=== PATIENT | female | born 1975 | race Caucasian/White ===

== ENCOUNTER → 2016-11-06 | Outpatient (CLI) | payer BC | END | disposition home or self-care (01) | LOC: C.PAPS 13:58 | PROVIDERS: ATTEND Physician Assistant | DX: Z01.419 Encounter for gynecological examination (general) (routine) without abnormal findings (principal) ==

== ENCOUNTER 2022-08-10 20:05 | Inpatient (IN) ==
[2022-08-10] MEDS ORDERED: CEFEPIME 2,000 MG/20 ML VIAL IV STA (20:13)
[2022-08-10] MEDS ORDERED: SODIUM CHLORIDE 0.9% 1000ML 1,000 ML IV SCH (20:15)
--- NOTE | 2022-08-10 20:28 | Emergency Department Note ---
Impression & Plan Flu-like symptoms, Fever, Leukopenia, Elevated liver enzymes, Acute hyponatremia ED Provider Note NAME: GLENNY ALVAREZ AGE: 47 SEX: F : 1975 ARRIVES VIA: Walk-In INFORMANT: [Patient] ED PROVIDER(S): [Ben Flores MD] CHIEF COMPLAINT: Fever HISTORY OF PRESENT ILLNESS: The patient is a 47-year-old female who has had a week of symptoms. She has had a fever up to as high as 104. She has had body aches. She is quite thirsty. The patient has had a slight cough but nothing too significant. No abdominal pain, no vomiting or diarrhea, no urinary complaints. Patient had laboratory work done 2 days ago and she was told that her white count was low and that her liver enzymes were somewhat elevated. As she has not gotten any better, she presents here for evaluation. No known tick bites. No sick contacts. PMHx/PSHx: See Below SOCIAL HISTORY: See Below. PHYSICAL EXAM: GENERAL: Patient is in no acute distress. HEENT: No acute trauma, normocephalic atraumatic, mucous membranes moist, no nasal congestion. NECK: No stridor, no adenopathy, no meningismus, trachea is midline. LUNGS: Clear to auscultation bilaterally, no wheeze, no rhonchi, breath sounds equal. HEART: Mildly tachycardic, regular rhythm, no murmurs. ABDOMEN: Soft, nontender, bowel sounds positive, no peritonitis. EXTREMITIES: No cyanosis or edema, full range of motion of all the joints without pain or difficulty, no signs for acute trauma. NEUROLOGIC: Oriented x 3, no acute motor or sensory deficits, no focal weakness. SKIN: No rash, no jaundice, no diaphoresis. DIFFERENTIAL DIAGNOSIS: Sepsis or bacteremia, Lyme disease, viral illness, pneumonia, bronchitis, dehydration, electrolyte imbalance, UTI, among others. EMERGENCY DEPARTMENT COURSE/PROCEDURES: Prior/Outside records reviewed: None. ECG per my review: Indication was potential sepsis. The ECG shows a normal sinus rhythm with a rate of 97. There is a potential old inferior infarct. T waves are slightly peaked. No concerning ST elevation. No PVCs. The QTc is 439. Continuous Cardiac Monitoring: An order was placed for continuous cardiac monitoring. The monitor shows a rate of 103 with sinus tachycardia. Critical Care Note: I have personally spent 41 minutes of critical care time in the direct management of this patient. This includes bedside care, interpretation of diagnostic studies, and testing, discussion with consultants, patient, and family members, and other required patient management activities. This 41 minutes is in excess of all separately billable procedures. MEDICAL DECISION MAKING: There is no leukocytosis, in fact, the white count is quite low at 2.4. There was a normal hemoglobin. Platelet count was normal at 162. Renal panel testing showed a lower potassium at 3.4. Sodium was quite low at 127. No renal failure. Lactic acid level was not elevated making severe sepsis less likely. Magnesium is low at 1.5. There were diffuse liver enzyme elevations. Procalcitonin level was slightly elevated consistent with potential bacterial infection. ECG showed showed a normal sinus rhythm, no obvious ischemia. Cardiac enzyme testing was slightly elevated. This elevation could be secondary to mismatch or potentially cardiac injury. Urinalysis did not show infection. Respiratory bio fire was completely negative. Lyme disease testing was negative. Anaplasmosis testing is pending, Babesia testing is pending. Tick smear is pending. Chest film per my review did not show mediastinal widening or pneumonia. Patient received IV saline, 2 L in total. She received IV cefepime as empiric antibiotic coverage. She was given oral doxycycline for the potential of a tickborne disease. She was given IV magnesium. Given the persistent fever, given the laboratory abnormalities, I do think a hospital stay is warranted. I spoke with the patient and case management, the on-call hospitalist was consulted. At this point, the cause for her illness is not completely clear, tickborne disease is certainly a strong consideration. DISPOSITION: The patient's presentation and findings warrant a hospital stay. Past Med/Surg History Medical History Hypertension Social History Smoking Status: Former smoker Preferred Language: Czech Feels Safe at Home: Yes Allergies Allergies Allergy/AdvReac Type Severity Reaction Status Date / Time codeine AdvReac Unknown GI UPSET Verified 11/03/15 15:31 [id number] Allergy Unknown Uncoded 06/16/02 17:59 N Allergy Unknown Uncoded 06/16/02 17:59 NO Allergy Unknown Uncoded 06/16/02 17:59 Results & Data (ED) Vital Signs Vital Signs - 24 hr 08/10/22 20:06 08/10/22 20:43 08/10/22 20:43 Temperature 37 C Temperature Source Oral Pulse Rate 116 H 104 H 104 H Pulse Rate from SpO2 Sensor 104 H Pulse Rhythm Regular Pulse Strength Normal Respiratory Rate 18 20 Respiratory Effort / Characteristics Non-Labored Spontaneous Respiratory Depth Normal Respiratory Pattern Regular Blood Pressure 141/93 H Blood Pressure Mean 109 Blood Pressure Position Sitting Pulse Oximetry 98 100 Oxygen Delivery Method Room Air Sepsis Recent Fever Within 48 Hours Yes Sepsis New/Unexplained Change in Mental Status N/A Sepsis Action Taken by Nursing No Action Required 08/10/22 20:50 08/10/22 21:00 08/10/22 21:00 Temperature Temperature Source Pulse Rate 95 H 100 H Pulse Rate from SpO2 Sensor 96 H 97 H Pulse Rhythm Pulse Strength Respiratory Rate 22 19 Respiratory Effort / Characteristics Respiratory Depth Respiratory Pattern Blood Pressure 129/90 Blood Pressure Mean 103 Blood Pressure Position Pulse Oximetry 99 91 Oxygen Delivery Method Sepsis Recent Fever Within 48 Hours Sepsis New/Unexplained Change in Mental Status Sepsis Action Taken by Nursing 08/10/22 21:10 08/10/22 21:20 08/10/22 21:30 Temperature Temperature Source Pulse Rate 95 H 93 H 98 H Pulse Rate from SpO2 Sensor 96 H 94 H Pulse Rhythm Pulse Strength Respiratory Rate 20 22 21 Respiratory Effort / Characteristics Respiratory Depth Respiratory Pattern Blood Pressure Blood Pressure Mean Blood Pressure Position Pulse Oximetry 100 100 Oxygen Delivery Method Sepsis Recent Fever Within 48 Hours Sepsis New/Unexplained Change in Mental Status Sepsis Action Taken by Nursing 08/10/22 21:31 08/10/22 21:31 08/10/22 21:40 Temperature Temperature Source Pulse Rate 101 H 94 H Pulse Rate from SpO2 Sensor Pulse Rhythm Pulse Strength Respiratory Rate 18 16 Respiratory Effort / Characteristics Respiratory Depth Respiratory Pattern Blood Pressure Blood Pressure Mean 111 Blood Pressure Position Pulse Oximetry 99 Oxygen Delivery Method Sepsis Recent Fever Within 48 Hours Sepsis New/Unexplained Change in Mental Status Sepsis Action Taken by Nursing 08/10/22 21:50 08/10/22 22:00 08/10/22 22:00 Temperature Temperature Source Pulse Rate 105 H 95 H Pulse Rate from SpO2 Sensor Pulse Rhythm Pulse Strength Respiratory Rate 21 18 Respiratory Effort / Characteristics Respiratory Depth Respiratory Pattern Blood Pressure 134/88 Blood Pressure Mean 103 Blood Pressure Position Pulse Oximetry 99 98 Oxygen Delivery Method Sepsis Recent Fever Within 48 Hours Sepsis New/Unexplained Change in Mental Status Sepsis Action Taken by Nursing 08/10/22 22:10 08/10/22 22:20 08/10/22 22:30 Temperature Temperature Source Pulse Rate 100 H 99 H 92 H Pulse Rate from SpO2 Sensor Pulse Rhythm Pulse Strength Respiratory Rate 20 22 19 Respiratory Effort / Characteristics Respiratory Depth Respiratory Pattern Blood Pressure Blood Pressure Mean Blood Pressure Position Pulse Oximetry 98 97 99 Oxygen Delivery Method Sepsis Recent Fever Within 48 Hours Sepsis New/Unexplained Change in Mental Status Sepsis Action Taken by Nursing 08/10/22 22:40 08/10/22 22:52 08/10/22 22:59 Temperature Temperature Source Pulse Rate 96 H 114 H 95 H Pulse Rate from SpO2 Sensor Pulse Rhythm Pulse Strength Respiratory Rate 18 20 Respiratory Effort / Characteristics Respiratory Depth Respiratory Pattern Blood Pressure Blood Pressure Mean Blood Pressure Position Pulse Oximetry 96 97 Oxygen Delivery Method Sepsis Recent Fever Within 48 Hours Sepsis New/Unexplained Change in Mental Status Sepsis Action Taken by Nursing 08/10/22 23:00 Temperature Temperature Source Pulse Rate Pulse Rate from SpO2 Sensor Pulse Rhythm Pulse Strength Respiratory Rate Respiratory Effort / Characteristics Respiratory Depth Respiratory Pattern Blood Pressure 129/92 Blood Pressure Mean 104 Blood Pressure Position Pulse Oximetry Oxygen Delivery Method Sepsis Recent Fever Within 48 Hours Sepsis New/Unexplained Change in Mental Status Sepsis Action Taken by Alf Medications Current Medication List: was personally reviewed by me Laboratory Data Attestation: I reviewed the patient's lab results. 08/10/22 20:31 08/10/22 05:03 Lab Results 08/10/22 08/10/22 08/10/22 Range/Units 05:03 20:31 20:31 WBC 2.42 L (4.8-10.8) K/ul RBC 4.36 (4.20-5.40) M/uL Hgb 14.3 (12.0-16.0) g/dl Hct 39.0 (37.0-47.0) % MCV 89.4 (80.0-100.0) fL MCH 32.8 (25.0-34.0) pg MCHC 36.7 H (32.0-36.0) g/dL RDW Std Deviation 39.7 (36.4-46.3) fL RDW Coeff of Lenore 12.1 (11.5-14.5) % Plt Count 162 (130-400) K/uL MPV 11.3 (9.4-12.4) fL Sodium 127 L (136-145) mmol/L Potassium 3.4 L (3.5-5.1) mmol/L Chloride 93 L (98-107) mmol/L Carbon Dioxide 27 (21-32) mmol/L Anion Gap 7 (3-11) BUN 7 (6-23) mg/dl Creatinine 0.51 L (0.6-1.2) mg/dl Est Cr Clr Drug Dosing 140.5 ml/min Est GFR ( Amer) 134.6 ml/min Est GFR (Non-Af Amer) 116.1 ml/min BUN/Creatinine Ratio 13.7 (10-20) Glucose 102 H (70-99(Fasting)) mg/dl Lactate 1.1 (0.4-2.0) mmol/L Calcium 8.6 (8.6-10.3) mg/dl Magnesium 1.5 L (1.7-2.4) mg/dl Total Bilirubin 1.3 H (0.2-1.0) mg/dl Direct Bilirubin 0.5 H (0-0.2) mg/dl AST 260 H (13-39) U/L ALT 161 H (7-52) U/L Alkaline Phosphatase 283 H (34-104) U/L Troponin I High Sens 14.5 H (0-14) pg/ml Total Protein 6.5 (6.0-8.3) gm/dl Albumin 3.6 (3.4-5.0) gm/dl Procalcitonin (0-0.5) ng/ml Urine Color Urine Appearance (Clear) Urine pH (4.5-7.5) Ur Specific Salters (1.000-1.030) Urine Protein (Negative) Urine Glucose (UA) (Negative) Urine Ketones (Negative) Urine Blood (Negative) Urine Nitrite (Negative) Urine Bilirubin (Negative) Urine Urobilinogen (Negative) Ur Leukocyte Esterase (Negative) Adenovirus (PCR) (NotDetected) B. pertussis DNA (PCR) (NotDetected) B.parapertussis DNA PCR (NotDetected) Lyme Disease IgG Ab (Negative) Lyme Disease IgM Ab (Negative) C. pneumoniae DNA (PCR) (NotDetected) Coronavirus OC43 (PCR) (NotDetected) Coronavirus HKU1 (PCR) (NotDetected) Coronavirus 229E (PCR) (NotDetected) SARS-CoV-2 (PCR) (NotDetected) Coronavirus NL63 (PCR) (NotDetected) Human Metapneumovir PCR (NotDetected) Influenza Type A (PCR) (NotDetected) Influenza Type B (PCR) (NotDetected) M. pneumoniae (PCR) (NotDetected) Parainfluenza 1 (PCR) (NotDetected) Parainfluenza 2 (PCR) (NotDetected) Parainfluenza 3 (PCR) (NotDetected) Parainfluenza 4 (PCR) (NotDetected) RSV (PCR) (NotDetected) Entero/Rhino (PCR) (NotDetected) 08/10/22 08/10/22 08/10/22 Range/Units 20:31 20:31 20:34 WBC (4.8-10.8) K/ul RBC (4.20-5.40) M/uL Hgb (12.0-16.0) g/dl Hct (37.0-47.0) % MCV (80.0-100.0) fL MCH (25.0-34.0) pg MCHC (32.0-36.0) g/dL RDW Std Deviation (36.4-46.3) fL RDW Coeff of Lenore (11.5-14.5) % Plt Count (130-400) K/uL MPV (9.4-12.4) fL Sodium (136-145) mmol/L Potassium (3.5-5.1) mmol/L Chloride (98-107) mmol/L Carbon Dioxide (21-32) mmol/L Anion Gap (3-11) BUN (6-23) mg/dl Creatinine (0.6-1.2) mg/dl Est Cr Clr Drug Dosing ml/min Est GFR ( Amer) ml/min Est GFR (Non-Af Amer) ml/min BUN/Creatinine Ratio (10-20) Glucose (70-99(Fasting)) mg/dl Lactate (0.4-2.0) mmol/L Calcium (8.6-10.3) mg/dl Magnesium (1.7-2.4) mg/dl Total Bilirubin (0.2-1.0) mg/dl Direct Bilirubin (0-0.2) mg/dl AST (13-39) U/L ALT (7-52) U/L Alkaline Phosphatase (34-104) U/L Troponin I High Sens (0-14) pg/ml Total Protein (6.0-8.3) gm/dl Albumin (3.4-5.0) gm/dl Procalcitonin (0-0.5) ng/ml Urine Color Dior Urine Appearance Clear (Clear) Urine pH 6.0 (4.5-7.5) Ur Specific Salters <= 1.005 (1.000-1.030) Urine Protein Negative (Negative) Urine Glucose (UA) Negative (Negative) Urine Ketones Negative (Negative) Urine Blood Negative (Negative) Urine Nitrite Negative (Negative) Urine Bilirubin Negative (Negative) Urine Urobilinogen Negative (Negative) Ur Leukocyte Esterase Negative (Negative) Adenovirus (PCR) Not Detected (NotDetected) B. pertussis DNA (PCR) Not Detected (NotDetected) B.parapertussis DNA PCR Not Detected (NotDetected) Lyme Disease IgG Ab Negative (Negative) Lyme Disease IgM Ab Negative (Negative) C. pneumoniae DNA (PCR) Not Detected (NotDetected) Coronavirus OC43 (PCR) Not Detected (NotDetected) Coronavirus HKU1 (PCR) Not Detected (NotDetected) Coronavirus 229E (PCR) Not Detected (NotDetected) SARS-CoV-2 (PCR) Not Detected (NotDetected) Coronavirus NL63 (PCR) Not Detected (NotDetected) Human Metapneumovir PCR Not Detected (NotDetected) Influenza Type A (PCR) Not Detected (NotDetected) Influenza Type B (PCR) Not Detected (NotDetected) M. pneumoniae (PCR) Not Detected (NotDetected) Parainfluenza 1 (PCR) Not Detected (NotDetected) Parainfluenza 2 (PCR) Not Detected (NotDetected) Parainfluenza 3 (PCR) Not Detected (NotDetected) Parainfluenza 4 (PCR) Not Detected (NotDetected) RSV (PCR) Not Detected (NotDetected) Entero/Rhino (PCR) Not Detected (NotDetected) 08/10/22 Range/Units 21:37 WBC (4.8-10.8) K/ul RBC (4.20-5.40) M/uL Hgb (12.0-16.0) g/dl Hct (37.0-47.0) % MCV (80.0-100.0) fL MCH (25.0-34.0) pg MCHC (32.0-36.0) g/dL RDW Std Deviation (36.4-46.3) fL RDW Coeff of Lenore (11.5-14.5) % Plt Count (130-400) K/uL MPV (9.4-12.4) fL Sodium (136-145) mmol/L Potassium (3.5-5.1) mmol/L Chloride (98-107) mmol/L Carbon Dioxide (21-32) mmol/L Anion Gap (3-11) BUN (6-23) mg/dl Creatinine (0.6-1.2) mg/dl Est Cr Clr Drug Dosing ml/min Est GFR ( Amer) ml/min Est GFR (Non-Af Amer) ml/min BUN/Creatinine Ratio (10-20) Glucose (70-99(Fasting)) mg/dl Lactate (0.4-2.0) mmol/L Calcium (8.6-10.3) mg/dl Magnesium (1.7-2.4) mg/dl Total Bilirubin (0.2-1.0) mg/dl Direct Bilirubin (0-0.2) mg/dl AST (13-39) U/L ALT (7-52) U/L Alkaline Phosphatase (34-104) U/L Troponin I High Sens (0-14) pg/ml Total Protein (6.0-8.3) gm/dl Albumin (3.4-5.0) gm/dl Procalcitonin 0.54 H (0-0.5) ng/ml Urine Color Urine Appearance (Clear) Urine pH (4.5-7.5) Ur Specific Salters (1.000-1.030) Urine Protein (Negative) Urine Glucose (UA) (Negative) Urine Ketones (Negative) Urine Blood (Negative) Urine Nitrite (Negative) Urine Bilirubin (Negative) Urine Urobilinogen (Negative) Ur Leukocyte Esterase (Negative) Adenovirus (PCR) (NotDetected) B. pertussis DNA (PCR) (NotDetected) B.parapertussis DNA PCR (NotDetected) Lyme Disease IgG Ab (Negative) Lyme Disease IgM Ab (Negative) C. pneumoniae DNA (PCR) (NotDetected) Coronavirus OC43 (PCR) (NotDetected) Coronavirus HKU1 (PCR) (NotDetected) Coronavirus 229E (PCR) (NotDetected) SARS-CoV-2 (PCR) (NotDetected) Coronavirus NL63 (PCR) (NotDetected) Human Metapneumovir PCR (NotDetected) Influenza Type A (PCR) (NotDetected) Influenza Type B (PCR) (NotDetected) M. pneumoniae (PCR) (NotDetected) Parainfluenza 1 (PCR) (NotDetected) Parainfluenza 2 (PCR) (NotDetected) Parainfluenza 3 (PCR) (NotDetected) Parainfluenza 4 (PCR) (NotDetected) RSV (PCR) (NotDetected) Entero/Rhino (PCR) (NotDetected) Administered Medications Sodium Chloride (Nss 1000ml) 1,000 mls @ 999 mls/hr IV .Q1H1M ONE Stop: 08/10/22 23:56 Last Admin: 08/10/22 23:19 Dose: 999 mls/hr Documented By: BRIELLE Magnesium Sulfate/Dextrose (Magnesium Sulfate / D5w) 1 gm in 100 mls @ 100 mls/hr IV NOW STA Stop: 08/11/22 00:10 Last Admin: 08/10/22 23:19 Dose: 100 mls/hr Documented By: BRIELLE Discontinued Medications Doxycycline Hyclate (Doxycycline Hyclate 100 Mg Cap) 100 mg PO NOW STA Stop: 08/10/22 22:57 Last Admin: 08/10/22 23:19 Dose: 100 mg Documented By: BRIELLE Cefepime HCl (Maxipime) 2,000 mg in 20 mls @ 5 mls/min IV NOW STA; Protocol Stop: 08/10/22 20:16 Last Admin: 08/10/22 20:52 Dose: 5 mls/min Documented By: JAIDEN Sodium Chloride (Nss 1000ml) 1,000 mls @ 999 mls/hr IV .Q1H1M YOLI Stop: 08/10/22 21:15 Last Infusion: 08/10/22 23:00 Dose: 0 mls/hr Documented By: Admin: 08/10/22 20:37 Dose: 999 mls/hr Documented By: EMB Imaging Data Attestation: I personally reviewed and interpreted this imaging study as follows: My Impression: Chest x-ray: Per my review there is no mediastinal widening, pneumonia or pneumothorax. Discharge Plan Visit Data Chief Complaint: Fever Stated Complaint: FEVER, FOR 7 DAYS ED Provider: Ben Flores Discharge Problem: Flu-like symptoms, Fever, Leukopenia, Elevated liver enzymes, Acute hyponatremia Patient Disposition: Admitted As Inpatient Condition: Fair Forms Stand Alone Forms: My [facility] Referrals Referrals: Marcelino Luevano DO [Physician] -
[2022-08-10 20:59] LABS: Appearance Urine Clear (Clear); Bilirubin Urine Negative (Negative); Blood Urine Negative (Negative); Color Urine Amber; Glucose Urine UA Negative (Negative); Ketones Urine Negative (Negative); Leukocyte Esterase Urine Negative (Negative); Nitrite Urine Negative (Negative); Protein Urine Negative (Negative); Specific Gravity Urine <= 1.005 (1.000-1.030); Urobilinogen Urine Negative (Negative)
[2022-08-10 21:09] LABS: Hemoglobin 14.3 g/dl (12.0-16.0); Mean Corpuscular Hemoglobin 32.8 pg (25.0-34.0); Mean Corpuscular Hgb Conc 36.7 g/dL (32.0-36.0); Mean Corpuscular Volume 89.4 fL (80.0-100.0); Mean Platelet Volume 11.3 fL (9.4-12.4); Platelet Count 162 K/uL (130-400); RDW Coefficient of Variation 12.1 % (11.5-14.5); RDW Standard Deviation 39.7 fL (36.4-46.3); Red Blood Count 4.36 M/uL (4.20-5.40); White Blood Count 2.42 K/ul (4.8-10.8)
[2022-08-10 21:27] LABS: Albumin Level 3.6 gm/dl (3.4-5.0); BUN Creatinine Ratio 13.7 (10-20); Bilirubin Direct 0.5 mg/dl (0-0.2); Bilirubin,Total 1.3 mg/dl (0.2-1.0); Calcium 8.6 mg/dl (8.6-10.3); Creatinine Clr Calc Pharmacy 140.5 ml/min; Est GFR (African American) 134.6 ml/min; Est GFR (Non-African American) 116.1 ml/min; Magnesium 1.5 mg/dl (1.7-2.4); Potassium 3.4 mmol/L (3.5-5.1); Total Protein 6.5 gm/dl (6.0-8.3)
[2022-08-10 21:30] LABS: Adenovirus PCR Not Detected (NotDetected); Bordetella parapertussis PCR Not Detected (NotDetected); Bordetella pertussis PCR Not Detected (NotDetected); Chlamydia pneumoniae PCR Not Detected (NotDetected); Coronavirus 229E PCR Not Detected (NotDetected); Coronavirus CoV-2 (COVID19)PCR Not Detected (NotDetected); Coronavirus HKU1 PCR Not Detected (NotDetected); Coronavirus NL63 PCR Not Detected (NotDetected); Coronavirus OC43PCR Not Detected (NotDetected); Human Metapneumovirus PCR Not Detected (NotDetected); Influenza A PCR Not Detected (NotDetected); Influenza B PCR Not Detected (NotDetected); Mycoplasma pneumoniae PCR Not Detected (NotDetected); Parainfluenza Virus 1 PCR Not Detected (NotDetected); Parainfluenza Virus 2 PCR Not Detected (NotDetected); Parainfluenza Virus 3 PCR Not Detected (NotDetected); Parainfluenza Virus 4 PCR Not Detected (NotDetected); Respiratory Syncytial VirusPCR Not Detected (NotDetected); Rhinovirus/Enterovirus PCR Not Detected (NotDetected)
[2022-08-10 21:34] LABS: Troponin I High Sensitivity 14.5 pg/ml (0-14)
[2022-08-10 21:59] LABS: Lyme Ab IgG w/WB Rflx Negative (Negative); Lyme Ab IgM w/WB Rflx Negative (Negative)
[2022-08-10] MEDS ORDERED: DOXYCYCLINE HYCLATE 100 MG CAP PO STA (22:56)
[2022-08-10] MEDS ORDERED: SODIUM CHLORIDE 0.9% 1000ML 1,000 ML IV ONE (22:56)
[2022-08-10] MEDS ORDERED: MAGNESIUM SULFATE / D5W 1 GM/100 ML BAG IV STA (23:11)
[2022-08-11] MEDS ORDERED: POTASSIUM CHLORIDE PWD 20 MEQ PACK PO STA (00:03)
[2022-08-11 00:05] LABS: Basophils # (auto) 0.02 K/uL (0-0.2); Basophils % (auto) 0.8 %; Echinocytes 3+; Eosinophils # (auto) 0.02 K/uL (0-0.50); Eosinophils % (auto) 0.8 %; Giant Platelets 1+; Immature Granulocytes # (auto) 0.01 K/uL (0.01-0.20); Immature Granulocytes % (auto) 0.4 %; Lymphocytes # (auto) 0.48 K/uL (1.2-3.4); Lymphocytes % (auto) 19.8 %; Monocytes # (auto) 0.16 K/uL (0.11-0.59); Monocytes % (auto) 6.6 %; Neutrophils # (auto) 1.73 K/uL (1.40-6.50); Neutrophils % (auto) 71.6 %
[2022-08-11] MEDS ORDERED: MAGNESIUM SULFATE / D5W 1 GM/100 ML BAG IV STA (00:16)
[2022-08-11] MEDS ORDERED: ACETAMINOPHEN 325 MG TAB PO STA (01:06)
[2022-08-11 01:09] LABS: Troponin I High Sensitivity 11.5 pg/ml (0-14)
[2022-08-11] MEDS ORDERED: lisinopril 5 MG TAB PO STA (01:12)
[2022-08-11 01:19] LABS: INR 1.1 (0.9-1.1); Partial Thromboplastin Ratio 1.3; Partial Thromboplastin Time 35.5 Seconds (21.0-31.0); Prothrombin Time 11.4 Seconds (9.0-12.0)
--- NOTE | 2022-08-11 02:02 | History & Physical Report ---
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 Lovenox subcu Full code Text document was generated using [employer] voice recognition software. It may contain grammatical or spelling errors. Kindly contact undersigned for clarification of any documentation item in question. History of Present Illness Chief Complaint: Fever Primary Care Provider: Wojciech Brooke MD History obtained from patient and records. 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 Patient has not felt well for about 2 weeks. Postnasal drip with dry cough symptoms. Fever chills. Headache with myalgias. No neck pain. Patient denies chest pain, SOB, abdominal pain, diarrhea, dysuria symptoms. Patient received COVID-19 vaccination. Outpatient COVID-19 test was negative. No recollection of recent tick bite although there are a lot of ticks where she resides. Patient alternating NSAID with Tylenol (3 g daily since last week) at home . Patient seen at PCPs office 3 days ago. Symptoms attributed to viral URI/flu as per patient. Outpatient Lyme screen was negative. Abnormal labs noted outpatient. WBC 2.08 with abnormal differential count. Sodium 124, AST 240, ALT 147 Worsening symptoms at home. Patient may have missed home medications because she had not been feeling well. Patient consulted ER for evaluation. IV ceftriaxone and doxycycline administered at the ER. 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, nursing background Allergies Allergy/AdvReac Type Severity Reaction Status Date / Time codeine AdvReac Unknown GI UPSET Verified 08/10/22 23:47 Home Medications Medication Instructions Recorded Confirmed Type aspirin 81 mg tablet,delayed 81 mg PO DAILY 08/10/22 08/10/22 History release doxycycline monohydrate 50 mg 50 mg PO DAILY 08/10/22 08/10/22 History capsule ibuprofen 200 mg tablet (Advil) 600 mg PO Q6H PRN Fever 08/10/22 08/10/22 History lisinopril 10 mg tablet 10 mg PO DAILY 08/10/22 08/10/22 History metoprolol succinate 50 mg 50 mg PO DAILY 08/10/22 08/10/22 History tablet,extended release 24 hr Past Med/Surg History Medical History Hypertension Social History Smoking Status: Former smoker Cigarettes Per Day: 1 PPD; Smoking End Date: 3 years ago; Hx Alcohol Use: Yes Hx Substance Use: No Preferred Language: Syriac Communication Ability: Effective Outside Installation Machinist Required: No Current Living Situation: Family Current Living Situation Comment: Lives w/ and three children Other Information That Helps Us Care for You: No Feels Safe at Home: Yes Safety Concerns: Feels Safe At This Time Assistive Devices: None Review of Systems Review of Systems: As per HPI, all other systems reviewed and negative Physical Exam Physical Exam: GENERAL: Comfortable, pleasant, no respiratory distress SKIN: Flushed skin , warm HEENT: [place] palpebral conjunctivae, no ptosis, dry buccal mucosa NECK : Supple, no tenderness CHEST : CTA, no tenderness HEART : Tachycardic, no obvious murmurs ABDOMEN: Some distention, nontender EXTREMITIES : No LE swelling/tenderness, no other conspicuous deformities noted NEUROLOGIC : Coherent, no facial asymmetry, no other gross focality Results & Data Results & Data Vital Signs (Past 12 Hours) Vital Signs Temp Pulse Resp BP Pulse Ox O2 Del Method 08/11/22 01:13 103 H 08/11/22 00:55 37.8 C H 08/11/22 00:00 97 H 21 99 08/11/22 00:00 151/97 H 08/10/22 23:50 102 H 13 98 08/10/22 23:40 102 H 21 95 08/10/22 23:30 94 H 18 99 08/10/22 23:30 128/94 08/10/22 23:20 108 H 21 08/10/22 23:10 102 H 22 97 08/10/22 23:00 94 H 23 97 08/11/22 00:00 98 Room Air 08/10/22 23:00 129/92 08/10/22 22:59 95 H 20 97 08/10/22 22:52 114 H 08/10/22 22:40 96 H 18 96 08/10/22 22:30 92 H 19 99 08/10/22 22:20 99 H 22 97 08/10/22 22:10 100 H 20 98 08/10/22 22:00 95 H 18 98 08/10/22 22:00 134/88 08/10/22 21:50 105 H 21 99 08/10/22 21:40 94 H 16 99 08/10/22 21:31 101 H 18 08/10/22 21:30 98 H 21 08/10/22 21:20 93 H 22 100 08/10/22 21:10 95 H 20 100 08/10/22 21:00 100 H 19 91 08/10/22 21:00 129/90 08/10/22 20:50 95 H 22 99 08/10/22 20:43 104 H 20 100 08/10/22 20:43 104 H 08/10/22 20:06 37 C 116 H 18 141/93 H 98 Room Air Laboratory Results Laboratory Results WBC 2.42 K/ul (4.8-10.8) L 08/10/22 20:31 RBC 4.36 M/uL (4.20-5.40) 08/10/22 20:31 Hgb 14.3 g/dl (12.0-16.0) 08/10/22 20:31 Hct 39.0 % (37.0-47.0) 08/10/22 20:31 MCV 89.4 fL (80.0-100.0) 08/10/22 20:31 MCH 32.8 pg (25.0-34.0) 08/10/22 20:31 MCHC 36.7 g/dL (32.0-36.0) H 08/10/22 20:31 RDW Std Deviation 39.7 fL (36.4-46.3) 08/10/22 20:31 RDW Coeff of Lenore 12.1 % (11.5-14.5) 08/10/22: Plt Count 162 K/uL (130-400) 08/10/22: MPV 11.3 fL (9.4-12.4) 08/10/22 20: Immature Gran % (Auto) 0.4 % 08/10/22: Neut % (Auto) 71.6 % 08/10/22: Lymph % (Auto) 19.8 % 08/10/22 20: Tyler % (Auto) 6.6 % 08/10/22: Eos % (Auto) 0.8 % 08/10/22: Baso % (Auto) 0.8 % 08/10/22: Neut # (Auto) 1.73 K/uL (1.40-6.50) 08/10/22: Lymph # (Auto) 0.48 K/uL (1.2-3.4) L 08/10/22: Tyler # (Auto) 0.16 K/uL (0.11-0.59) 08/10/22 20: Eos # (Auto) 0.02 K/uL (0-0.50) 08/10/22: Baso # (Auto) 0.02 K/uL (0-0.2) 08/10/22: Immature Gran # (Auto) 0.01 K/uL (0.01-0.20) 08/10/22: Giant Platelets 1+ 08/10/22: Echinocytes 3+ 08/10/22: PT 11.4 Seconds (9.0-12.0) 08/11/22 00:22 INR 1.1 (0.9-1.1) 08/11/22 00: APTT 35.5 Seconds (21.0-31.0) H 08/11/22 00:22 PTT Ratio 1.3 08/11/22 00:22 Sodium 127 mmol/L (136-145) L 08/10/22 Unknown Potassium 3.4 mmol/L (3.5-5.1) L 08/10/22 Unknown Chloride 93 mmol/L (98-107) L 08/10/22 Unknown Carbon Dioxide 27 mmol/L (21-32) 08/10/22 Unknown Anion Gap 7 (3-11) 08/10/22 Unknown BUN 7 mg/dl (6-23) 08/10/22 Unknown Creatinine 0.51 mg/dl (0.6-1.2) L 08/10/22 Unknown Est Cr Clr Drug Dosing 140.5 ml/min 08/10/22 Unknown Est GFR ( Amer) 134.6 ml/min 08/10/22 Unknown Est GFR (Non-Af Amer) 116.1 ml/min 08/10/22 Unknown BUN/Creatinine Ratio 13.7 (10-20) 08/10/22 Unknown Glucose 102 mg/dl (70-99(Fasting)) H 08/10/22 Unknown Osmolality 265 mOsm/kg (280-300) L 08/10/22 20:31 Lactate 1.1 mmol/L (0.4-2.0) 08/10/22 20:31 Calcium 8.6 mg/dl (8.6-10.3) 08/10/22 Unknown Magnesium 1.5 mg/dl (1.7-2.4) L 08/10/22 Unknown Total Bilirubin 1.3 mg/dl (0.2-1.0) H 08/10/22 Unknown Direct Bilirubin 0.5 mg/dl (0-0.2) H 08/10/22 Unknown AST 260 U/L (13-39) H 08/10/22 Unknown ALT 161 U/L (7-52) H 08/10/22 Unknown Alkaline Phosphatase 283 U/L (34-104) H 08/10/22 Unknown Troponin I High Sens 11.5 pg/ml (0-14) 08/11/22 00:22 Total Protein 6.5 gm/dl (6.0-8.3) 08/10/22 Unknown Albumin 3.6 gm/dl (3.4-5.0) 08/10/22 Unknown Lipase 20 U/L (11-82) 08/11/22 00:22 Procalcitonin 0.54 ng/ml (0-0.5) H 08/10/22 21:37 TSH 0.408 uIu/ml (0.300-4.500) 08/10/22 20:31 Urine Color Dior 08/10/22 20:31 Urine Appearance Clear (Clear) 08/10/22 20:31 Urine pH 6.0 (4.5-7.5) 08/10/22 20:31 Ur Specific [place] <= 1.005 (1.000-1.030) 08/10/22 20:31 Urine Protein Negative (Negative) 08/10/22 20:31 Urine Glucose (UA) Negative (Negative) 08/10/22 20:31 Urine Ketones Negative (Negative) 08/10/22 20:31 Urine Blood Negative (Negative) 08/10/22 20:31 Urine Nitrite Negative (Negative) 08/10/22 20:31 Urine Bilirubin Negative (Negative) 08/10/22 20:31 Urine Urobilinogen Negative (Negative) 08/10/22 20:31 Ur Leukocyte Esterase Negative (Negative) 08/10/22 20:31 Urine Osmolality 114 mOsm/kg (500-800) L 08/10/22 20:31 Ur Random Sodium 10 mmol/L 08/10/22 20:31 Adenovirus (PCR) Not Detected (NotDetected) 08/10/22 20:34 Anaplasma Smear See Comment 08/10/22 20:31 Babesia Smear See Comment 08/10/22 20:31 B. pertussis DNA (PCR) Not Detected (NotDetected) 08/10/22 20:34 B.parapertussis DNA PCR Not Detected (NotDetected) 08/10/22 20:34 Lyme Disease IgG Ab Negative (Negative) 08/10/22 20:31 Lyme Disease IgM Ab Negative (Negative) 08/10/22 20:31 C. pneumoniae DNA (PCR) Not Detected (NotDetected) 08/10/22 20:34 Coronavirus OC43 (PCR) Not Detected (NotDetected) 08/10/22 20:34 Coronavirus HKU1 (PCR) Not Detected (NotDetected) 08/10/22 20:34 Coronavirus 229E (PCR) Not Detected (NotDetected) 08/10/22 20:34 SARS-CoV-2 (PCR) Not Detected (NotDetected) 08/10/22 20:34 Coronavirus NL63 (PCR) Not Detected (NotDetected) 08/10/22 20:34 Human Metapneumovir PCR Not Detected (NotDetected) 08/10/22 20:34 Influenza Type A (PCR) Not Detected (NotDetected) 08/10/22 20:34 Influenza Type B (PCR) Not Detected (NotDetected) 08/10/22 20:34 M. pneumoniae (PCR) Not Detected (NotDetected) 08/10/22 20:34 Parainfluenza 1 (PCR) Not Detected (NotDetected) 08/10/22 20:34 Parainfluenza 2 (PCR) Not Detected (NotDetected) 08/10/22 20:34 Parainfluenza 3 (PCR) Not Detected (NotDetected) 08/10/22 20:34 Parainfluenza 4 (PCR) Not Detected (NotDetected) 08/10/22 20:34 RSV (PCR) Not Detected (NotDetected) 08/10/22 20:34 Entero/Rhino (PCR) Not Detected (NotDetected) 08/10/22 20:[address] head: No acute intracranial finding. Chest x-ray as per my interpretation no infiltrate EKG as per my interpretation : Rate 100, NSR, normal axis, T wave abnormalities septal leads, PVCs
--- NOTE | 2022-08-11 02:26 | CT Scan Report ---
Exam(s): CT HEAD Without Contrast EXAM: CT Head Without Intravenous Contrast CLINICAL HISTORY: Headache. TECHNIQUE: Axial computed tomography images of the head/brain without intravenous contrast. CTDI is 37.17 mGy and DLP is 537.48 mGy-cm. Automated exposure control was utilized for the study. A dose lowering technique was utilized adhering to the principles of ALARA. COMPARISON: CT head 01/21/2013 FINDINGS: Brain: Unremarkable. No significant white matter disease. No intracranial hemorrhage, mass-effect or midline shift. No abnormal extra axial fluid. No evidence of acute infarct. Ventricles: Unremarkable. No ventriculomegaly. Bones/joints: Unremarkable. No acute fracture. Soft tissues: Unremarkable. Sinuses: Unremarkable as visualized. No acute sinusitis. Mastoid air cells: Unremarkable as visualized. No mastoid effusion. IMPRESSION: No acute intracranial finding. Electronically signed by: Pau Humphries MD 08/11/22 02:26 AM
[2022-08-11 04:56] LABS: Hematocrit (blood only) 31.6 % (37.0-47.0); Hemoglobin 11.6 g/dl (12.0-16.0); Mean Corpuscular Hemoglobin 32.8 pg (25.0-34.0); Mean Corpuscular Hgb Conc 36.7 g/dL (32.0-36.0); Mean Corpuscular Volume 89.3 fL (80.0-100.0); Mean Platelet Volume 11.4 fL (9.4-12.4); Platelet Count 152 K/uL (130-400); RDW Coefficient of Variation 12.1 % (11.5-14.5); RDW Standard Deviation 39.5 fL (36.4-46.3); Red Blood Count 3.54 M/uL (4.20-5.40); White Blood Count 2.15 K/ul (4.8-10.8)
[2022-08-11] MEDS ORDERED: PROMETHAZINE HCL 6.25 MG in SODIUM CHLORIDE 0.9% 50 ML IV PRN (05:03)
[2022-08-11 05:14] LABS: Alanine Aminotransferase 125 U/L (7-52); Albumin Globulin Ratio 1.3 (0.9-2); Albumin Level 2.8 gm/dl (3.4-5.0); Alkaline Phosphatase 206 U/L (34-104); Anion Gap 7 (3-11); Aspartate Aminotransferase 198 U/L (13-39); BUN Creatinine Ratio 14.3 (10-20); Bilirubin,Total 0.8 mg/dl (0.2-1.0); Blood Urea Nitrogen 5 mg/dl (6-23); Calcium 7.5 mg/dl (8.6-10.3); Carbon Dioxide 23 mmol/L (21-32); Chloride 103 mmol/L (98-107); Creatinine Clr Calc Pharmacy 204.8 ml/min; Est GFR (African American) > 150.0 ml/min; Est GFR (Non-African American) 131.4 ml/min; Globulin 2.1 gm/dl (2.5-4.0); Glucose 109 mg/dl (70-99(Fasting)); Magnesium 2.1 mg/dl (1.7-2.4); Potassium 3.7 mmol/L (3.5-5.1); Sodium 133 mmol/L (136-145); Total Protein 4.9 gm/dl (6.0-8.3)
[2022-08-11] MEDS: LORazepam 0.5 MG TAB PO PRN ×2 (05:20→20:25)
[2022-08-11] MEDS ORDERED: DEXTROSE 5% 1,000 ML IV ONE (05:28)
[2022-08-11 05:50] LABS: Basophils # (auto) 0.01 K/uL (0-0.2); Basophils % (auto) 0.5 %; Echinocytes 1+; Eosinophils # (auto) 0.02 K/uL (0-0.50); Eosinophils % (auto) 0.9 %; Giant Platelets 1+; Immature Granulocytes # (auto) 0.01 K/uL (0.01-0.20); Immature Granulocytes % (auto) 0.5 %; Lymphocytes # (auto) 0.66 K/uL (1.2-3.4); Lymphocytes % (auto) 30.7 %; Monocytes # (auto) 0.22 K/uL (0.11-0.59); Monocytes % (auto) 10.2 %; Neutrophils # (auto) 1.23 K/uL (1.40-6.50); Neutrophils % (auto) 57.2 %
[2022-08-11] MEDS: DOXYCYCLINE HYCLATE 100 MG CAP PO SCH ×2 (07:48→20:25)
[2022-08-11] MEDS: ENOXAPARIN INJ 40 MG/0.4 ML SYR SQ SCH (07:48)
[2022-08-11] MEDS: METOPROLOL SUCC 50MG EXT REL TAB PO SCH (07:48)
[2022-08-11] MEDS: ASPIRIN 81 MG ECTAB PO SCH (07:48)
--- NOTE | 2022-08-11 08:15 | XRay Report ---
SINGLE VIEW CHEST CLINICAL HISTORY: Sepsis FINDINGS: 2 AP, portable, upright chest radiographs are compared to study dated 01/21/2013. The cardio mediastinal silhouette is unremarkable. The lungs and pleural spaces are clear. No pneumothorax is se en. The bony thorax is grossly intact. IMPRESSION: No active disease in the chest. ACT 112: Negative or not required by law. Electronically signed by: Ben Islas M.D. 08/11/2022 8:13 AM
[2022-08-11] MEDS: ACETAMINOPHEN 325 MG TAB PO PRN ×2 (08:36→16:43)
--- NOTE | 2022-08-11 14:23 | Ultrasound Report ---
US liver CLINICAL HISTORY: R/O Stones,CBD dilatation TECHNIQUE: Multiple real-time sonographic images of the right upper quadrant were obtained. Comparison: None available at the time of this dictation. FINDINGS: The liver is diffusely echogenic in appearance with poor ultrasound penetration, with normal contour, which is consistent with fatty infiltration. No focal mass lesions are seen. No intrahepatic duct al dilatation is seen. No gallstones or sludge are identified within the gallbladder. The gallbladde r wall is not thickened. There is no pericholecystic fluid present. A sonographic Beebe's sign was n ot elicited by the lacquer maker. The common duct measures 0.7 cm in diameter at the level of the hep atic artery. The visualized portions of the pancreas appear normal. The right kidney shows normal echogenicity, cortical thickness and renal contour. The right kidney sh ows no evidence of hydronephrosis or mass. No ascites or free fluid is seen in Davies's pouch. IMPRESSION: 1. No acute abnormalities and in particular no evidence of acute cholecystitis. 2. Hepatic steatosis. ACT 112: Negative or not required by law. Electronically signed by: Panfilo Hunter M.D. 08/11/2022 2:22 PM
--- NOTE | 2022-08-11 23:42 | Electrocardiogram Report ---
Test Reason : Blood Pressure : / mmHG Vent. Rate : 097 BPM Atrial Rate : 097 BPM P-R Int : 186 ms QRS Dur : 080 ms QT Int : 346 ms P-R-T Axes : 066 020 055 degrees QTc Int : 439 ms Normal sinus rhythm Possible Left atrial enlargement Inferior infarct When compared with ECG of 10-AUG-2022 20:21, No significant change Confirmed by Ap Locke ([id number]) on 08/11/2022 11:42:00 PM Referred By: REFERRED SELF Confirmed By:Ap Locke
--- NOTE | 2022-08-11 23:42 | Electrocardiogram Report ---
Test Reason : Blood Pressure : / mmHG Vent. Rate : 097 BPM Atrial Rate : 097 BPM P-R Int : 174 ms QRS Dur : 088 ms QT Int : 328 ms P-R-T Axes : 072 039 000 degrees QTc Int : 407 ms Sinus rhythm Inferior infarct , age undetermined Abnormal ECG No previous ECGs available Confirmed by Ap Locke ([id number]) on 08/11/2022 11:41:33 PM Referred By: REFERRED SELF Confirmed By:Ap Locke
[2022-08-12] MEDS: ACETAMINOPHEN 325 MG TAB PO PRN (01:36)
[2022-08-12 08:25] LABS: Hematocrit (blood only) 34.1 % (37.0-47.0); Hemoglobin 12.5 g/dl (12.0-16.0); Mean Corpuscular Hemoglobin 32.6 pg (25.0-34.0); Mean Corpuscular Hgb Conc 36.7 g/dL (32.0-36.0); Platelet Count 188 K/uL (130-400); RDW Coefficient of Variation 12.3 % (11.5-14.5); Red Blood Count 3.83 M/uL (4.20-5.40); White Blood Count 2.55 K/ul (4.8-10.8)
[2022-08-12 08:31] LABS: Albumin Globulin Ratio 1.4 (0.9-2); BUN Creatinine Ratio 9.5 (10-20); Bilirubin,Total 0.8 mg/dl (0.2-1.0); Calcium 8.2 mg/dl (8.6-10.3); Creatinine Clr Calc Pharmacy 184.6 ml/min; Est GFR (African American) 143.5 ml/min; Est GFR (Non-African American) 123.8 ml/min; Globulin 2.2 gm/dl (2.5-4.0); Potassium 3.9 mmol/L (3.5-5.1); Total Protein 5.2 gm/dl (6.0-8.3)
[2022-08-12] MEDS ORDERED: lisinopril 10 MG TAB PO SCH (09:00)
[2022-08-12 09:11] LABS: ALC (manual) 0.61 K/uL (1.2-3.4); ANC (manual) 1.68 K/uL (1.4-6.5); Eosinophils # (manual) 0.05 K/uL (0-0.50); Eosinophils % (manual) 2 %; Lymphocytes # (manual) 0.61 K/uL (1.2-3.4); Lymphocytes % (manual) 24 %; Monocytes # (manual) 0.23 K/uL (0.11-0.59); Monocytes % (manual) 9 %; Neutrophils # (manual) 1.68 K/uL (1.40-6.50); Neutrophils % (manual) 66 %
[2022-08-12] MEDS: ENOXAPARIN INJ 40 MG/0.4 ML SYR SQ SCH (09:38)
[2022-08-12] MEDS: ASPIRIN 81 MG ECTAB PO SCH (09:41)
[2022-08-12] MEDS: DOXYCYCLINE HYCLATE 100 MG CAP PO SCH (09:41)
[2022-08-12] MEDS: METOPROLOL SUCC 50MG EXT REL TAB PO SCH (09:41)
[2022-08-12 10:16] LABS: HBSAG NON-REACTIVE (NON-REACTIVE); Hepatitis A Antibody IgM NON-REACTIVE (NON-REACTIVE); Hepatitis B Core Antibody IgM NON-REACTIVE (NON-REACTIVE)
--- NOTE | 2022-08-12 10:38 | XRay Report ---
XR chest 2V PA/lateral CLINICAL HISTORY: r/o pneumonia TECHNIQUE: 2 views of the chest were obtained. Comparison: Comparison is made to chest radiograph 08/10/2022 FINDINGS: No lines and tubes are seen. The cardiomediastinal silhouette is normal. The lungs are clear. No evid ence of pleural effusion or pneumothorax. IMPRESSION: No acute abnormalities and in particular no radiographic evidence of pneumonia. ACT 112: Negative or not required by law. Electronically signed by: Panfilo Hunter M.D. 08/12/2022 10:37 AM
--- NOTE | 2022-08-12 12:26 | Hospitalist Progress Note ---
Date of Service August 12, 2022 Assessment & Plan (1) Sepsis: Plan: Likely secondary to tickborne infection Lyme titer has been negative Anaplasmosis and babesiosis PCR is pending but limited test is negative Was given doxycycline for a total of 10 days course Monospot came back positive Her initial sepsis seems to be secondary to viral infection which is resolving Hyponatremia, transaminitis, troponin elevation, leukopenia/abnormal differential count secondary to illness Her electrolytes improved subsequently Abnormal LFTs Secondary to infectious mononucleosis Hepatitis panel negative Ultrasound of the abdomen unremarkable This has been improving Hypertension, elevated secondary to missed BP medications Blood pressure remained stable Mood disorder, stable Acne rosacea on doxycycline 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 Lovenox subcu Full code Patient was discharged home in reasonable medical state Admission and Anticipated Discharge Date Admission Date: August 11, 2022 Subjective 08/12/2022 The patient was seen and examined in medical telemetry unit She has been stable with minimal symptoms-her weakness, fatigue, fever has improved Denies any other symptoms and wants to go home Review of Systems Review of Systems: All systems reviewed and are unremarkable except as noted below Physical Exam Physical Exam: Lying in bed comfortably Constitutional: well developed and well nourished; not ill appearing Eyes: PERRL, conjunctivae normal, anicteric sclerae ENMT: external ear and nose normal, oropharynx normal Neck: trachea midline, no thyromegaly Respiratory: no respiratory distress Auscultation: lungs clear to auscultation bilaterally Cardiovascular: Rate/Rhythm: regular rate and regular rhythm Heart Sounds: normal S1 and normal S2; no murmur Extremities: no edema Gastrointestinal (Abdomen): Inspection/Auscultation: normal bowel sounds; abdomen not distended Percussion/Palpation: abdomen soft; abdomen nontender Musculoskeletal: No acute arthritis involving any joint Neurologic: normal touch/pain/proprioception and moves all extremities; no focal motor deficits Lymphatic: no cervical or axillary lymphadenopathy Results & Data Results & Data Vital Signs (Past 12 Hours) Vital Signs Temp Pulse Pulse Resp BP Pulse Ox O2 Del Method 08/12/22 12:03 37.1 C 80 17 138/94 99 Room Air 08/12/22 07:00 74 08/12/22 08:59 36.6 C 74 17 152/92 H 98 Room Air 08/12/22 02:41 37.5 C 100 H 18 143/90 H 93 Room Air 08/12/22 02:08 37.1 C 08/12/22 01:34 39.2 C H Laboratory Results Short CBC 08/12/22 Range/Units 07:50 WBC 2.55 L (4.8-10.8) K/ul Hgb 12.5 (12.0-16.0) g/dl Hct 34.1 L (37.0-47.0) % Plt Count 188 (130-400) K/uL BMP 08/12/22 07:50 Sodium 134 L Potassium 3.9 Chloride 102 Carbon Dioxide 27 BUN 4 L Creatinine 0.42 L Glucose 99 Calcium 8.2 L Liver Function 08/12/22 Range/Units 07:50 Total Bilirubin 0.8 (0.2-1.0) mg/dl AST 157 H (13-39) U/L ALT 123 H (7-52) U/L Alkaline Phosphatase 194 H (34-104) U/L Albumin 3.0 L (3.4-5.0) gm/dl
--- NOTE | 2022-08-13 06:08 | Electrocardiogram Report ---
Test Reason : Blood Pressure : / mmHG Vent. Rate : 083 BPM Atrial Rate : 083 BPM P-R Int : 218 ms QRS Dur : 082 ms QT Int : 366 ms P-R-T Axes : 086 086 081 degrees QTc Int : 430 ms Sinus rhythm with 1st degree A-V block Right atrial enlargement ST elevation, consider pericarditis vs early repolarization Abnormal ECG When compared with ECG of 10-AUG-2022 20:27, CA interval has increased Inferior infarct is no longer Present Confirmed by Ap Locke ([id number]) on 08/13/2022 6:08:15 AM Referred By: REFERRED SELF Confirmed By:Ap Locke
--- NOTE | 2022-08-13 09:00 | Discharge Summary ---
Date of Service August 12, 2022 Admission HPI Per Admitting Provider History obtained from patient and records. 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 Patient has not felt well for about 2 weeks. Postnasal drip with dry cough symptoms. Fever chills. Headache with myalgias. No neck pain. Patient denies chest pain, SOB, abdominal pain, diarrhea, dysuria symptoms. Patient received COVID-19 vaccination. Outpatient COVID-19 test was negative. No recollection of recent tick bite although there are a lot of ticks where she resides. Patient alternating NSAID with Tylenol (3 g daily since last week) at home . Patient seen at PCPs office 3 days ago. Symptoms attributed to viral URI/flu as per patient. Outpatient Lyme screen was negative. Abnormal labs noted outpatient. WBC 2.08 with abnormal differential count. Sodium 124, AST 240, ALT 147 Worsening symptoms at home. Patient may have missed home medications because she had not been feeling well. Patient consulted ER for evaluation. IV ceftriaxone and doxycycline administered at the ER. 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, nursing background Admission Exam Per Admitting Provider Physical Exam: GENERAL: Comfortable, pleasant, no respiratory distress SKIN: Flushed skin , warm HEENT: [place] palpebral conjunctivae, no ptosis, dry buccal mucosa NECK : Supple, no tenderness CHEST : CTA, no tenderness HEART : Tachycardic, no obvious murmurs ABDOMEN: Some distention, nontender EXTREMITIES : No LE swelling/tenderness, no other conspicuous deformities noted NEUROLOGIC : Coherent, no facial asymmetry, no other gross focality Principal Diagnosis Sepsis, abnormal LFTs, infectious mononucleosis, possible tickborne disease Discharge Exam Lying in bed comfortably Constitutional well developed and well nourished; not ill appearing Eyes PERRL, conjunctivae normal, anicteric sclerae ENMT external ear and nose normal, oropharynx normal Neck trachea midline, no thyromegaly Respiratory no respiratory distress Auscultation: lungs clear to auscultation bilaterally Cardiovascular Rate/Rhythm: regular rate and regular rhythm Heart Sounds: normal S1 and normal S2; no murmur Extremities: no edema Gastrointestinal (Abdomen) Inspection/Auscultation: normal bowel sounds; abdomen not distended Percussion/Palpation: abdomen soft; abdomen nontender Neurologic normal touch/pain/proprioception and moves all extremities; no focal motor deficits Lymphatic no cervical or axillary lymphadenopathy Discharge Data Allergies Allergy/AdvReac Type Severity Reaction Status Date / Time codeine AdvReac Unknown GI UPSET Verified 08/10/22 23:47 Consultations 08/10/22 23:10 ED Decision to Admit Stat Ordered Studies 08/11/22 00:26 CT head/brain wo con Stat 08/11/22 09:07 US liver Urgent Hospital Course (1) Sepsis: Likely secondary to tickborne infection Lyme titer has been negative Anaplasmosis and babesiosis PCR is pending but limited test is negative Was given doxycycline for a total of 10 days course Monospot came back positive Her initial sepsis seems to be secondary to viral infection which is resolving Hyponatremia, transaminitis, troponin elevation, leukopenia/abnormal differential count secondary to illness Her electrolytes improved subsequently Abnormal LFTs Secondary to infectious mononucleosis Hepatitis panel negative Ultrasound of the abdomen unremarkable This has been improving Hypertension, elevated secondary to missed BP medications Blood pressure remained stable Mood disorder, stable Acne rosacea on doxycycline 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 Lovenox subcu Full code Patient was discharged home in reasonable medical state Total Time Total Time Spent Total Time Spent (In Minutes): 40 minutes Discharge Plan Discharge Items Patient Disposition: Home - Self-Care Reason For Visit: SEPSIS Discharge Diagnosis: Sepsis, abnormal LFTs, infectious mononucleosis, possible tickborne disease Condition on Discharge: Fair Activity: Resume your previous activity Non-emergency contact: Primary Care Provider Call non-emergency contact if: you have any medication questions and your symptoms worsen Follow-up/Referrals: Wojciech Brooke MD [Primary Care Provider] - (Date & Time 08/15/2022 11:20 AM Provider Wojciech Brooke MD Department Family Medicine [facility] ) Diet: Regular Addtl Attending Provider Instructions: Please take precautions to avoid falls Please finish the course of antibiotic Keep appointment with your healthcare provider Pending Studies at Discharge: Yes Studies:: PCR test for anaplasmosis and babesiosis Stand-Alone Forms: [employer], Work/School Release, Smoking Cessation Medications and DC Order Prescriptions: New doxycycline hyclate 100 mg Capsule 100 mg PO BID Qty: 20 0RF Continued metoprolol succinate 50 mg tablet extended release 24 hr 50 mg PO DAILY aspirin 81 mg Tablet,Delayed Release (Dr/Ec) 81 mg PO DAILY lisinopril 10 mg tablet 10 mg PO DAILY ibuprofen [Advil] 200 mg Tablet 600 mg PO Q6H PRN (Reason: Fever) Discontinued doxycycline monohydrate 50 mg capsule 50 mg PO DAILY Discharge Orders: Discharge Order (Routine); Ordered 08/12/22 Ordered By: Nazia Mustafa Admission Data Admit Date/Time: 08/11/22 02:35 Attending Provider: Nazia Mustafa Admit Provider: Marco Antonio Danielle Primary Care Provider: Wojciech Brooke Other Providers: Marco Antonio Danielle Other Interventions: Discharge Summary Assessment (RN) Last Done: 08/12/22 13:44
[2022-08-14 10:27] LABS: Babesia microti DNA Not Detected (Not Detected)
== END 2022-08-12 14:30 | disposition home or self-care (01) | DRG 872 ==
LOC: ED 20:05 → 2N 08-11 02:35 → SUATTDRO 08-11 02:35 → 2N 08-11 05:09